=== PATIENT | female | born 1985 | race Two or more races ===

== ENCOUNTER 2018-06-09 20:56 | Emergency (ER) | payer SELFPAY ==
[2018-06-09] MEDS ORDERED: IPRATROPIUM/ALBUTEROL 3 ML DEYVIAL IH ONE ×2 (21:15→22:30)
[2018-06-09] MEDS ORDERED: predniSONE 20 MG TAB PO ONE (21:29)
[2018-06-09] MEDS ORDERED: amLODIPine BESYLATE 5 MG TAB PO ONE (22:30)
--- NOTE | 2018-06-09 22:44 | CPEKG ---
Test Reason : OPEN Blood Pressure : / mmHG Vent. Rate : 105 BPM Atrial Rate : 105 BPM P-R Int : 169 ms QRS Dur : 096 ms QT Int : 342 ms P-R-T Axes : 077 068 -21 degrees QTc Int : 453 ms Sinus tachycardia Borderline T abnormalities, inferior leads Confirmed by Mekhi Sanchez ([id number]) on 06/09/2018 10:43:26 PM Referred By: Confirmed By:Mekhi Sanchez
--- NOTE | 2018-06-09 23:02 | EDPHY ---
H & P Time Seen by Provider: 06/09/18 23:00 HPI/ROS: CHIEF COMPLAINT: Cough and wheezing HISTORY OF PRESENT ILLNESS: 33-year-old female here for complaint shortness of breath, cough and wheezing worsening for the last week. She reports a history of hypertension and asthma. She states she started with a dry cough and runny nose about a week ago and has proceed to develop worsening cough with phlegm but no blood. She has no history of heart failure and has noted no leg swelling. She has no history of DVT or PE. She has had no fever. She takes albuterol for asthma but no other prescribed medications. She is supposed to be taking a medication for high blood pressure but has not been taking for the last year. She denies headache and chest pain. REVIEW OF SYSTEMS: Constitutional: No fever, no chills. Eyes: No discharge. ENT: No sore throat. Cardiovascular: No chest pain, no palpitations. Respiratory: No cough, + shortness of breath. Gastrointestinal: No abdominal pain, no vomiting. Genitourinary: No hematuria. Musculoskeletal: No back pain. Skin: No rashes. Neurological: No headache. Smoking Status: Never smoked Physical Exam: General Appearance: Alert and no distress. Eyes: Pupils equal and round no injection. Respiratory: Chest is nontender, wheezing bilaterally with no retractions or increased work of breathing Cardiac: regular rate and rhythm. No lower extremity edema or unilateral calf swelling. No JVD Gastrointestinal: Abdomen is soft and nontender, no masses, bowel sounds normal. Musculoskeletal: Neck is supple and nontender. Extremities have full range of motion and are nontender. Skin: No rashes or lesions. Constitutional: Initial Vital Signs Temperature (C) 37.4 C 06/09/18 21:00 Heart Rate 119 H 06/09/18 21:00 Respiratory Rate 20 06/09/18 21:00 Blood Pressure 172/111 H 06/09/18 21:00 O2 Sat (%) 93 06/09/18 21:00 O2 Delivery Mode Room Air Allergies/Adverse Reactions: No Known Allergies Allergy (Unverified 06/09/18 20:59) Home Medications: Medication Instructions Recorded Albuterol [Proventil Inhaler HFA 1 - 2 puffs IH Q4H #1 mdi 06/09/18 (*)] amLODIPine BESYLATE [Amlodipine 2.5 mg PO DAILY #15 tablet 06/09/18 Besylate] predniSONE [Prednisone] 60 mg PO DAILY 4 Days tablet 06/09/18 Medical Decision Making - Diagnostics Imaging Results: Imaging Impressions Chest X-Ray 06/09/18 21:29 Impression: 1. No pneumothorax or displaced rib fracture. 2. Mild airways disease. ED Course/Re-evaluation: Patient here with elevated blood pressure and cough and wheezing for the last week. Chest x-ray reveals no pulmonary vascular congestion focal infiltrate. She has a known history of chronic hypertension but is not compliant with her medication regiment. She was started 2.5 amlodipine and her blood pressure did improve. Addition she was given 2 duo nebs and 60 mg of prednisone and her wheezing in dyspnea improved. She has a primary care physician will call them tomorrow morning for blood pressure recheck. I did consider ACS, CHF, pulmonary embolism. EKG revealed no ischemic changes and she is perc rule negative for PE. - Data Points Medications Given: Discontinued Medications Albuterol/Ipratropium (Duoneb) 3 ml IH EDNOW ONE Stop: 06/09/18 21:16 Last Admin: 06/09/18 21:18 Dose: 3 ml Albuterol/Ipratropium (Duoneb) 3 ml IH EDNOW ONE Stop: 06/09/18 22:31 Last Admin: 06/09/18 22:40 Dose: 3 ml Amlodipine Besylate (Norvasc) 2.5 mg PO EDNOW ONE Stop: 06/09/18 22:31 Last Admin: 06/09/18 22:41 Dose: 2.5 mg Prednisone (Prednisone) 60 mg PO ONCE ONE Stop: 06/09/18 21:30 Last Admin: 06/09/18 21:44 Dose: 60 mg Departure - Departure Disposition: Home, Routine, Self-Care Clinical Impression: Chronic hypertension, Noncompliance with medication regimen, Asthma exacerbation Condition: Good Instructions: Asthma (ED), Chronic Hypertension (ED) Additional Instructions: Please call your primary care doctor's office tomorrow morning and see need a ER follow-up tomorrow to recheck her blood pressure and oxygen saturation. Take prednisone 60 mg daily for the next 4 days. Additionally prescribing amlodipine 2.5 mg to be taken daily for your elevated blood pressure. Please have her blood pressure recheck tomorrow with her primary care doctor to adjust her medications. Also do 2 puffs of albuterol every 4 hr for the next 2-3 days and then as needed thereafter. Referrals: NONE *PRIMARY CARE P,. [Primary Care Provider] - As per Instructions Prescriptions: Albuterol [Proventil Inhaler HFA (*)] 1 - 2 puffs IH Q4H #1 mdi amLODIPine BESYLATE [Amlodipine Besylate] 2.5 mg PO DAILY #15 tablet predniSONE [Prednisone] 60 mg PO DAILY 4 Days tablet
[2018-06-09 23:27] VITALS: BP 151/100
== END 2018-06-09 23:38 | disposition home or self-care (01) ==
DX: J45.901 Unspecified asthma with (acute) exacerbation (principal); I10 Essential (primary) hypertension
CPT/HCPCS: J7512

== ENCOUNTER 2018-11-05 23:24 | Emergency (ER) | payer MEDICAID, OTHER ==
[2018-11-05] MEDS ORDERED: NEOMYCIN/POLYMYX B/HC SUSP 10 ML OTIC.BTL LEFTEAR ONE (23:47)
--- NOTE | 2018-11-05 23:48 | EDPHY ---
H & P Stated Complaint: "High BP", L ear pain Time Seen by Provider: 11/05/18 23:31 HPI/ROS: Chief Complaint: Ear pain, hypertension HPI: 33-year-old woman with a history of poorly controlled hypertension. Patient is prescribed losartan but does not take it regularly every day. Is been complaining of left ear pain with discharge for the last 2 days. She also noted tonight that her blood pressure was elevated. She did take her losartan approximately an hour prior to arrival. No headache. No chest pain or shortness of breath. No nausea or vomiting. She does not swim. No foreign bodies in her ears. ROS: 10 systems were reviewed and were negative except those elements noted in the HPI. PMH: Poorly controlled hypertension, medication noncompliance Social History: No smoking, no alcohol, no recreational drug use Family History: non-contributory Physical Exam: Gen: Awake, Alert, No Distress HEENT: Ears: Left ear canal his mild purulent discharge. There is no significant swelling. TM is visualized and is normal. Nose: no rhinorrhea Eyes: PERRLA, EOMI Mouth: Moist mucosa Neck: Supple, no JVD Chest: nontender, lungs clear to auscultation Heart: S1, S2 normal, no murmur Abd: Soft, non-tender, no guarding Back: no CVA tenderness, no midline tenderness Ext: no edema, non-tender Skin: no rash Neuro: CN II-XII intact, Sensation grossly intact, Strength 5/5 in bilateral upper and lower extremities - Personal History LMP (Females 10-55): IUD In Place Current Tetanus Diphtheria and Acellular Pertussis (TDAP): No - Medical/Surgical History Hx Asthma: Yes Hx Chronic Respiratory Disease: No Hx Diabetes: No Hx Cardiac Disease: No Hx Renal Disease: No Hx Cirrhosis: No Hx Alcoholism: No Hx HIV/AIDS: No Hx Splenectomy or Spleen Trauma: No Other PMH: Asthma, HTN - Social History Smoking Status: Never smoked Constitutional: Initial Vital Signs Temperature (C) 36.8 C 11/05/18 23:25 Heart Rate 87 11/05/18 23:25 Respiratory Rate 18 11/05/18 23:25 Blood Pressure 161/126 H 11/05/18 23:25 O2 Sat (%) 98 11/05/18 23:25 O2 Delivery Mode Room Air Allergies/Adverse Reactions: No Known Allergies Allergy (Unverified 11/05/18 23:25) Home Medications: Medication Instructions Recorded Albuterol [Proventil Inhaler HFA 1 - 2 puffs IH Q4H #1 mdi 06/09/18 (*)] Losartan Potassium 11/05/18 Neomy Sulf/Polymyx B Sulf/Hc 4 drops OT TID 7 Days solution 11/05/18 [Cortisporin Otic (*)] Medical Decision Making ED Course/Re-evaluation: 33-year-old with hypertension and otitis externa. She is hypertensive here but only took her medications 1 hr prior to arrival. She is not taking regularly. I have counseled her extensively on the importance of taking her blood pressure medication at the same time every day and not to skip doses. Will send her home on topical otic suspension. Follow up with primary care physician in 2 days for recheck and blood pressure check. Departure - Departure Disposition: Home, Routine, Self-Care Clinical Impression: Otitis externa, Hypertension Condition: Good Instructions: Otitis Externa (ED), Hypertension (ED) Additional Instructions: Apply Cortisporin 4 drops to left ear 3 times a day x7 days. Follow up with primary care physician in 2 days for blood pressure check and recheck of your ear. Return emergency department for increasing headache, fevers, chills, chest pain , shortness of breath, or any other concerns. Referrals: Dana Whitehead [Primary Care Provider] - As per Instructions Prescriptions: Neomy Sulf/Polymyx B Sulf/Hc [Cortisporin Otic (*)] 4 drops OT TID 7 Days solution
[2018-11-05 23:53] VITALS: BP 156/118
== END 2018-11-06 00:24 | disposition home or self-care (01) ==
DX: H60.92 Unspecified otitis externa, left ear (principal); I10 Essential (primary) hypertension; J45.909 Unspecified asthma, uncomplicated